=== PATIENT | male | born 1990 | race Caucasian/White ===

== ENCOUNTER 2021-03-07 07:54 | Emergency (ER) | payer SELFPAY ==
[2021-03-07] MEDS ORDERED: IBUPROFEN600 MG PO (09:03)
== END 2021-03-07 09:00 | disposition home or self-care (01) ==
LOC: ER1 07:54
DX: S93.402A Sprain of unspecified ligament of left ankle, initial encounter (principal); F17.290 Nicotine dependence, other tobacco product, uncomplicated; X50.0XXA Overexertion from strenuous movement or load, initial encounter; Y92.009 Unspecified place in unspecified non-institutional (private) residence as the place of occurrence of the external cause
CPT/HCPCS: 29515; 73610; 99283